=== PATIENT | female | born 1990 | race Two or more races ===

== ENCOUNTER 2019-02-13 10:44 | Emergency (ER) | payer BC ==
[~2019-02-13] VITALS: Ht 152.4 cm; Wt 68.0 kg
[2019-02-13] MEDS ORDERED: NKM (10:51)
--- NOTE | 2019-02-13 10:53 | NUR ---
ED Nurse Note: Pt c/o feeling hot and having chills started last friday. Denies any other symptoms.
[2019-02-13] MEDS ORDERED: TAMIFLU75 MG ORAL (11:51)
[2019-02-13] MEDS ORDERED: ALBUTEROL SULF8.5 GM INH (11:51)
--- NOTE | 2019-02-13 11:52 | Diagnostic Imaging Report ---
INDICATION: Shortness of breath COMPARISON: None FINDINGS: Single frontal view demonstrates a normal cardiomediastinal silhouette. The lungs are clear. No pleural effusions. The visualized osseous structures are within normal limits. IMPRESSION: No acute cardiopulmonary disease.
[2019-02-13 11:57] VITALS: BP 131/78
--- NOTE | 2019-02-13 11:58 | NUR ---
ER DISCHARGE NOTE: Patient is cleared to be discharged per ERMD, pt is aox4, on room air, with stable vital signs. pt was given dc and prescription instructions, pt was able to verbalize understanding, pt id band removed. pt is able to ambulate with steady gait. pt took all belongings.
--- NOTE | 2019-02-13 12:04 | Emergency Room Report ---
History of Present Illness General Chief Complaint: Upper Respiratory Illness Source: Patient Present Illness [facility] Patient present with complaints of fever and chills sensation since last Friday Recent patient started having discomfort to her throat and also mild cough denies any production with this Denies any chest pain denies any vomiting or diarrhea Patient also has some generalized body aching Denies any neck pain or photophobia denies any other sick contacts denies any rash Allergies: Coded Allergies: No Known Allergies (Unverified , 02/13/19) Patient History Past Medical History: see triage record Pertinent Family History: none Last Menstrual Period: 01/17/19 Reviewed Nursing Documentation: PMH: Agreed; PSxH: Agreed Nursing Documentation-PMH Past Medical History: No Stated History Review of Systems All Other Systems: negative except mentioned in HPI Physical Exam Vital Signs Date Time Temp Pulse Resp B/P (MAP) Pulse Ox O2 Delivery O2 Flow Rate FiO2 02/13/19 10:48 98.1 115 18 129/81 96 Room Air Sp02 EP Interpretation: reviewed, normal General Appearance: well appearing, no apparent distress Head: normocephalic, atraumatic Eyes: bilateral eye PERRL, bilateral eye EOMI ENT: hearing grossly normal, normal pharynx, TMs + canals normal, uvula midline Neck: full range of motion, supple, no meningismus, no bony tend Respiratory: lungs clear, normal breath sounds, no rhonchi, no respiratory distress, no retraction, no accessory muscle use Cardiovascular #1: normal peripheral pulses, regular rate, rhythm, no edema, no gallop, no JVD, no murmur Gastrointestinal: normal bowel sounds, non tender, soft, no mass, no organomegaly, non-distended, no guarding, no hernia, no pulsatile mass, no rebound Genitourinary: no CVA tenderness Musculoskeletal: normal inspection Neurologic: oriented x3, responsive, 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 III-XII nml as tested, motor strength/ tone normal, sensory intact Psychiatric: mood/affect normal Skin: normal color, no rash, warm/dry, palpation normal Lymphatic: normal inspection, no adenopathy Medical Decision Making Diagnostic Impression: Primary Impression: uri Additional Impression: flu symptoms ER Course Multiple differentials and consideration given some of the patient's complaints of the shortness of breath sensation earlier in the recent URI symptoms x-ray imaging was obtained no obvious acute pathology is seen Patient remains hemodynamically stable My consideration is high regarding possible flu symptoms patient was written for Tamiflu and requires close outpatient follow-up and return with any worsening symptoms Chest X-Ray Diagnostic Results Chest X-Ray Diagnostic Results : Chest X-Ray Ordered: Yes # of Views/Limited/Complete: 1 View Indication: Shortness of Breath EP Interpretation: Yes Interpretation: no consolidation, no effusion, no pneumothorax Impression: No acute disease Electronically Signed by: Justen Flower DO Last Vital Signs Date Time Temp Pulse Resp B/P (MAP) Pulse Ox O2 Delivery O2 Flow Rate FiO2 02/13/19 11:57 98.0 105 16 131/78 99 Room Air Status: improved Disposition: HOME, SELF-CARE Condition: Stable Scripts Albuterol Sulfate* (ALBUTEROL SULFATE MDI*) 8.5 Gm Hfa.aer.ad 2 PUFF INH Q6H, #1 EA 0 Refills Prov: Justen Flower DO 02/13/19 Oseltamivir Phosphate (Tamiflu) 75 Mg Capsule 75 MG ORAL TWICE A DAY for 5 Days, CAP Prov: Justen Flower DO 02/13/19 Referrals: Savanna Pfeiffer [facility] Patient Instructions: Influenza, Adult, [id number], Upper Respiratory Infection, Adult Additional Instructions: Patient is provided with the discharge instructions notified to follow up with primary doctor in the next 2-3 days otherwise return to the er with any worsening symptoms. Please note that this report is being documented using [employer] technology. This can lead to erroneous entry secondary to incorrect interpretation by the dictating instrument. Justen Flower DO Feb 13, 2019 12:04
== END 2019-02-13 12:01 | disposition home or self-care (01) ==
LOC: EMR 11:55
DX: J06.9 Acute upper respiratory infection, unspecified (principal); J11.1 Influenza due to unidentified influenza virus with other respiratory manifestations
CPT/HCPCS: 71045; 99283